=== PATIENT | female | born 1960 | race Caucasian/White ===

== ENCOUNTER 2020-12-12 09:02 | Outpatient (CLI) | payer MEDICARE, MEDICAID ==
[2020-12-12 10:33] LABS: ALBUMIN 3.5 G/DL (3.4-5.0); ANION GAP 10 (8-16); BLOOD UREA NITROGEN 11 MG/DL (7-18); BUN/CREATININE RATIO 13.3 (6.6-38.0); CALCIUM 8.8 MG/DL (8.5-10.1); CHLORIDE 103 MMOL/L (99-107); CREATININE 0.83 MG/DL (0.40-0.90); GLUCOSE 177 MG/DL (70-104); POTASSIUM 4.1 MMOL/L (3.5-5.1); SODIUM 142 MMOL/L (135-145); TOTAL CARBON DIOXIDE 28.6 MMOL/L (24-32); eGFR 70 ML/MIN
== END 2020-12-12 23:59 | disposition home or self-care (01) ==
LOC: LAB 09:02
PROVIDERS: ATTEND Internal Medicine Interventional Cardiology
DX: I11.9 Hypertensive heart disease without heart failure (principal)
CPT/HCPCS: 36415; 80048

== ENCOUNTER 2021-01-03 08:22 | Outpatient (CLI) | payer MEDICARE, MEDICAID | END 2021-01-03 23:59 | disposition home or self-care (01) | LOC: 64 CT 08:22 | PROVIDERS: ATTEND Internal Medicine Interventional Cardiology | DX: I35.0 Nonrheumatic aortic (valve) stenosis (principal) | CPT/HCPCS: 75571 ==

== ENCOUNTER 2021-01-31 10:19 | Day surgery (SDC) | payer MEDICARE, MEDICAID ==
[2021-01-30 09:52] LABS: BASOPHILS # (AUTO) 0.1 X10'3 (0-0.2); BASOPHILS % (AUTO) 1.1 % (0-1); EOSINOPHILS # (AUTO) 0.7 X10'3 (0-0.9); EOSINOPHILS % (AUTO) 9.7 % (0-6); HEMATOCRIT 41.2 % (35.0-45.0); HEMOGLOBIN 13.6 g/dl (12.0-16.0); MEAN CORPUSCULAR HEMOGLOBIN 30.6 PG (27.0-31.0); MEAN CORPUSCULAR VOLUME 92.8 FL (78-98); MEAN PLATELET VOLUME 8.3 FL (7.4-10.4); MONOCYTES # (AUTO) 0.6 X10'3 (0-0.9); MONOCYTES % (AUTO) 7.6 % (2-12); NEUTROPHILS # (AUTO) 4.1 X10'3 (1.8-7.7); NEUTROPHILS % (AUTO) 54.6 % (42-75); PLATELET COUNT 304 X10'3 (140-440); RED BLOOD COUNT 4.44 X10'6 (4.20-5.60); RED CELL DISTRIBUTION WIDTH 12.9 % (11.5-14.5); WHITE BLOOD COUNT 7.5 X10'3 (4.5-11.0)
[2021-01-30 10:10] LABS: ALBUMIN 3.6 G/DL (3.4-5.0); ANION GAP 9 (8-16); BLOOD UREA NITROGEN 13 MG/DL (7-18); BUN/CREATININE RATIO 16.3 (6.6-38.0); CALCIUM 9.2 MG/DL (8.5-10.1); CHLORIDE 106 MMOL/L (99-107); GLUCOSE 146 MG/DL (70-104); SODIUM 144 MMOL/L (135-145); TOTAL CARBON DIOXIDE 28.9 MMOL/L (24-32); eGFR 73 ML/MIN
[2021-01-30 10:14] LABS: PARTIAL THROMBOPLASTIN TIME 25 SECONDS (22-32)
[~2021-01-31] VITALS: Ht 167.6 cm; Wt 117.5 kg
[2021-01-31] VITALS (9 sets, daily range): BP systolic 96–167; BP diastolic 27–110
[2021-01-31] MEDS ORDERED: normal saline 1,000 ML IV SCH (10:35)
[2021-01-31] MEDS ORDERED: diphenhydrAMINE 25mg capsule PO PRN (10:35)
[2021-01-31] MEDS ORDERED: LIDOcaine/PRILOcaine 5gm cream TP ONE (10:35)
[2021-01-31] MEDS ORDERED: LORazepam 0.5 MG tablet PO PRN (10:35)
[2021-01-31] MEDS ORDERED: METH-797 PO (10:51)
[2021-01-31] MEDS ORDERED: EVOL140P3 SQ (10:51)
[2021-01-31] MEDS ORDERED: LISI-790 PO (10:52)
[2021-01-31] MEDS ORDERED: GABA300T25 PO (10:52)
[2021-01-31] MEDS ORDERED: METO-384 PO (10:52)
[2021-01-31] MEDS ORDERED: ASPI-12 PO (10:52)
[2021-01-31] MEDS ORDERED: SITA1TAB6 PO (10:52)
[2021-01-31] MEDS ORDERED: ALBU18HF2 INH (10:52)
[2021-01-31] MEDS ORDERED: POTA10TA36 PO (10:52)
[2021-01-31] MEDS ORDERED: FURO20TA4 PO (10:52)
[2021-01-31] MEDS ORDERED: HYDR-3972 PO (10:52)
[2021-01-31] MEDS ORDERED: DULA1.5P SQ (10:53)
[2021-01-31] MEDS ORDERED: heparin 1,000unit/ml 10ml vial 10 ML ONE (11:40)
[2021-01-31] MEDS ORDERED: verapamil 2.5 mg/ml inj IV ONE (11:40)
[2021-01-31] MEDS ORDERED: nitroGLYCERIN-Tridil 50MG/D5W 250 ML IV ONE (11:40)
[2021-01-31] MEDS ORDERED: fentaNYL/PF 50MCG/1 ML 2ML syringe ONE (11:40)
[2021-01-31] MEDS ORDERED: midazolam 1 mg/ML 2ml injection ONE (11:40)
[2021-01-31] MEDS ORDERED: iohexol 350MG/ML 100ml bottle IV ONE (11:40)
[2021-01-31] MEDS ORDERED: normal saline 1000ml 1,000 ML IV SCH (13:50)
[2021-01-31] MEDS ORDERED: proCHLORperazine 10 MG/2 ml inj IV PRN (13:50)
[2021-01-31] MEDS ORDERED: acetaminophen 325mg tablet PO PRN (13:50)
[2021-01-31] MEDS ORDERED: ondansetron/PF 4mg/2ml inj IV PRN (13:50)
[2021-01-31] MEDS ORDERED: OXAZEpam 15mg capsule PO PRN (13:50)
[2021-01-31] MEDS ORDERED: HYDROcodone/acetaminophen 10/325mg tab PO PRN (14:00)
[2021-01-31] MEDS ORDERED: HYDROcodone/acetaminophen 5mg/325mg tablet PO PRN (14:00)
== END 2021-01-31 17:45 | disposition home or self-care (01) ==
LOC: SSTAY O 10:19
PROVIDERS: ATTEND Internal Medicine Interventional Cardiology
DX: I35.0 Nonrheumatic aortic (valve) stenosis (principal); I25.10 Atherosclerotic heart disease of native coronary artery without angina pectoris; E78.5 Hyperlipidemia, unspecified; G47.33 Obstructive sleep apnea (adult) (pediatric); I10 Essential (primary) hypertension; F41.9 Anxiety disorder, unspecified; Z79.899 Other long term (current) drug therapy; Z79.82 Long term (current) use of aspirin; Z88.5 Allergy status to narcotic agent; Z88.8 Allergy status to other drugs, medicaments and biological substances; Z88.4 Allergy status to anesthetic agent; Z79.01 Long term (current) use of anticoagulants
CPT/HCPCS: 36415; 80048; 82948; 85025; 85610; 85730; 93005; 93460; 99152; 99153; C1769; J1644; J2250; J3010; J7030; Q0163; Q9967; A4620; A6258; C1751; J3490

== ENCOUNTER 2021-06-28 10:27 | Outpatient (CLI) | payer MEDICARE, MEDICAID ==
[~2021-06-28] VITALS: Ht 165.1 cm; Wt 114.3 kg
[~2021-06-28 10:27] MED LIST: ALBU18HF2 INH; ASPI-12 PO; DULA1.5P SQ; EVOL140P3 SQ; FURO20TA4 PO; GABA300T25 PO; HYDR-3972 PO; LISI-790 PO; METH-797 PO; METO-384 PO; POTA10TA36 PO; SITA1TAB6 PO
[2021-06-28 11:08] LABS: BASOPHILS # (AUTO) 0.1 X10'3 (0-0.2); EOSINOPHILS # (AUTO) 0.5 X10'3 (0-0.9); EOSINOPHILS % (AUTO) 6.2 % (0-6); HEMATOCRIT 39.7 % (35.0-45.0); HEMOGLOBIN 13.5 g/dl (12.0-16.0); LYMPHOCYTES % (AUTO) 25.2 % (21-51); MEAN CORPUSCULAR HEMOGLOBIN 30.9 PG (27.0-31.0); MEAN CORPUSCULAR HGB CONC 33.9 g/dL (33.0-36.5); MEAN CORPUSCULAR VOLUME 91.1 FL (78-98); MEAN PLATELET VOLUME 8.2 FL (7.4-10.4); MONOCYTES # (AUTO) 0.5 X10'3 (0-0.9); MONOCYTES % (AUTO) 6.2 % (2-12); NEUTROPHILS # (AUTO) 4.8 X10'3 (1.8-7.7); NEUTROPHILS % (AUTO) 61.4 % (42-75); PLATELET COUNT 277 X10'3 (140-440); RED BLOOD COUNT 4.36 X10'6 (4.20-5.60); RED CELL DISTRIBUTION WIDTH 12.7 % (11.5-14.5); WHITE BLOOD COUNT 7.8 X10'3 (4.5-11.0)
[2021-06-28] MEDS ORDERED: IODIXANOL 320 MG/ML INFUS..BTL 100ML IV ONE ×2 (11:14→13:28)
[2021-06-28] MEDS ORDERED: IODIXANOL 320 MG/ML INFUS..BTL 50ML IV ONE ×2 (11:15→13:28)
[2021-06-28 11:20] LABS: PARTIAL THROMBOPLASTIN TIME 26 SECONDS (22-32)
[2021-06-28 11:22] LABS: ALANINE AMINOTRANSFERASE 39 U/L (12-78); ALBUMIN 3.5 G/DL (3.4-5.0); ALBUMIN/GLOBULIN RATIO 0.9 (1.1-1.5); ALKALINE PHOSPHATASE 110 IU/L (46-116); ANION GAP 9 (8-16); ASPARTATE AMINO TRANSFERASE 38 U/L (10-37); BILIRUBIN,TOTAL 0.4 MG/DL (0.1-1.0); BLOOD UREA NITROGEN 12 MG/DL (7-18); BUN/CREATININE RATIO 16.2 (6.6-38.0); CALCIUM 8.7 MG/DL (8.5-10.1); CHLORIDE 106 MMOL/L (99-107); CREATININE 0.74 MG/DL (0.40-0.90); GLUCOSE 152 MG/DL (70-104); POTASSIUM 4.2 MMOL/L (3.5-5.1); SODIUM 144 MMOL/L (135-145); TOTAL CARBON DIOXIDE 28.7 MMOL/L (24-32); TOTAL PROTEIN 7.4 G/DL (6.4-8.2); eGFR 80 ML/MIN
[2021-06-28] MEDS ORDERED: albuterol 2.5 MG/3 ML nebule NEB ONE (14:30)
== END 2021-06-28 23:59 | disposition home or self-care (01) ==
LOC: 64 CT 10:27
PROVIDERS: ATTEND Internal Medicine Cardiovascular Disease
DX: I71.2 Thoracic aortic aneurysm, without rupture (principal); R94.2 Abnormal results of pulmonary function studies
CPT/HCPCS: 36415; 71046; 71275; 74174; 80053; 85025; 85610; 85730; 94060; 94727; 94729; 94760; Q9967

== ENCOUNTER 2021-07-24 05:21 | Inpatient (IN) | payer MEDICARE, MEDICAID ==
[2021-07-19 15:36] LABS: BASOPHILS # (AUTO) 0.1 X10'3 (0-0.2); BASOPHILS % (AUTO) 0.9 % (0-1); EOSINOPHILS # (AUTO) 0.4 X10'3 (0-0.9); EOSINOPHILS % (AUTO) 4.8 % (0-6); LYMPHOCYTES # (AUTO) 2.3 X10'3 (1.1-4.8); LYMPHOCYTES % (AUTO) 29.4 % (21-51); MEAN CORPUSCULAR HGB CONC 33.9 g/dL (33.0-36.5); MEAN CORPUSCULAR VOLUME 91.4 FL (78-98); MEAN PLATELET VOLUME 8.5 FL (7.4-10.4); MONOCYTES # (AUTO) 0.7 X10'3 (0-0.9); MONOCYTES % (AUTO) 8.7 % (2-12); NEUTROPHILS # (AUTO) 4.5 X10'3 (1.8-7.7); NEUTROPHILS % (AUTO) 56.2 % (42-75); PRE OP HEMATOCRIT 41.9 % (35.0-45.0); PRE OP HEMOGLOBIN 14.2 g/dL (12.0-16.0); PRE OP PLATELET COUNT 301 X10'3 (140-440); RED BLOOD COUNT 4.58 X10'6 (4.20-5.60); RED CELL DISTRIBUTION WIDTH 12.8 % (11.5-14.5)
[2021-07-19 15:39] LABS: ABG BASE EXCESS 0.7 mmol/L (-2.0-2.0); ABG HCO3 25.8 mmol/L (22.0-26.0); ABG OXYGEN SATURATION 96.1 % (94-97); ALLEN'S TEST POSITIVE; FCOHb 0.6 % (0.0-3.9); FMetHb 0.1 % (0.0-1.5); FO2Hb 95.4 % (94-97); TOTAL HEMOGLOBIN 14.6 G/dl (12.0-16.0)
[2021-07-19 15:42] LABS: CLARITY,URINE SLIGHTLY CLOUDY (Clear); COLOR,URINE YELLOW (Yellow); GLUCOSE, URINE NEGATIVE (Neg); KETONES,URINE NEGATIVE (Neg); LEUKOCYTE ESTERASE ,URINE NEGATIVE (Neg); NITRITES, URINE NEGATIVE (Neg); OCCULT BLOOD,URINE NEGATIVE (Neg); PROTEIN,URINE NEGATIVE (Neg); UROBILINOGEN,URINE 0.2 E.U/dL (0.2-1.0)
[2021-07-19 15:49] LABS: HEMOGLOBIN A1C 6.8 % (4.5-6.2); PRE OP INR 1.1 INR; PRE OP PROTIME 10.9 SECONDS (9.0-12.0)
[2021-07-19 15:52] LABS: UA COLLECTION TYPE CLN CATCH MIDSTREAM
[2021-07-19 15:54] LABS: MUCUS STRANDS FEW /LPF (Neg); SQUAMOUS EPITHELIAL CELL,UR MANY /LPF (FEW)
[2021-07-19 15:54] LABS: ALBUMIN 3.8 G/DL (3.4-5.0); ALBUMIN/GLOBULIN RATIO 0.9 (1.1-1.5); ALKALINE PHOSPHATASE 95 IU/L (46-116); BLOOD UREA NITROGEN 14 MG/DL (7-18); BUN/CREATININE RATIO 20.9 (6.6-38.0); CHLORIDE 107 MMOL/L (99-107); CREATININE 0.67 MG/DL (0.40-0.90); PRE OP ALT 65 U/L (30-65); PRE OP ANION GAP 11 (8-16); PRE OP AST 60 U/L (10-37); PRE OP BILIRUB, TOTAL 0.3 MG/DL (0.0-1.0); PRE OP GLUCOSE 124 MG/DL (70-104); PRE OP POTASSIUM 4.4 MMOL/L (3.4-5.1); PRE OP SODIUM 143 MMOL/L (135-145); TOTAL CARBON DIOXIDE 24.9 MMOL/L (24-32); eGFR 89 ML/MIN
[2021-07-19 15:55] LABS: CAL OXALATE CRYSTALS 3+ /HPF (NEGATIVE)
[2021-07-19 15:56] LABS: BACTERIA,URINE FEW /HPF (Neg); RBC,URINE 0-2 /HPF (0-2); WBC,URINE 0-4 /HPF (0-4)
[2021-07-24] VITALS (16 sets, daily range): BP systolic 97–156; BP diastolic 52–86
[~2021-07-24] VITALS: Ht 165.1 cm; Wt 115.1 kg
[~2021-07-24 05:21] MED LIST changes: +ASPI-10 PO; -ASPI-12 PO; -DULA1.5P SQ; -EVOL140P3 SQ; +FURO-150 PO; -FURO20TA4 PO; +GABA300C PO; -GABA300T25 PO; -LISI-790 PO; -METH-797 PO; -METO-384 PO; +METO-395 PO; -POTA10TA36 PO; +SITA1TAB2 PO; -SITA1TAB6 PO; +ceFAZolin 1000mg inj ONE; +ringers solution, lacted 1,000 ML IV SCH
[2021-07-24] MEDS ORDERED: mupirocin 2% nasal ointment 1gm UD NS ONE (05:30)
[2021-07-24] MEDS ORDERED: LORazepam 2 mg/ml vial IV PRN (05:30)
[2021-07-24] MEDS ORDERED: gabapentin 400mg capsule PO ONE (05:30)
[2021-07-24] MEDS: Insulin Reg/NS 100units/100mL 100 ML IV SCH ×2 (05:30→23:28)
[2021-07-24] MEDS ORDERED: DOCUMENT DATE & TIME OF BETA-BLOCKER PO ONE (05:30)
[2021-07-24] MEDS ORDERED: dextrose 50%-water 50ml dispensing syringe IV PRN ×2 (05:30→11:15)
[2021-07-24] MEDS ORDERED: metoprolol tartrate 12.5mg (1/2 tablet) PO ONE (05:30)
[2021-07-24] MEDS ORDERED: vancomycin 1,500 MG in NS 300ml IV soln IV ONE (05:30)
[2021-07-24] MEDS ORDERED: famotidine 20mg tablet PO ONE (05:30)
[2021-07-24] MEDS ORDERED: cefazolin/dext.iso 2gm/100ml IV ONE (05:30)
[2021-07-24] MEDS ORDERED: LIDOcaine 1% (10mg/ml) 2ml vial ONE (06:12)
[2021-07-24] MEDS ORDERED: SUFENTANIL CITRATE 50 MCG/ML 2ml ampule IV ONE (06:49)
[2021-07-24] MEDS ORDERED: MIDAZolam 1mg/ml 10ml vial ONE (06:49)
[2021-07-24] MEDS ORDERED: protamine sulf. 10mg/ml inj. IV ONE (07:14)
[2021-07-24] MEDS ORDERED: glycopyrrolate 0.2mg/ml inj ONE (07:14)
[2021-07-24] MEDS ORDERED: ondansetron/PF 4mg/2ml inj ONE ×2 (07:14→10:30)
[2021-07-24] MEDS ORDERED: nitroGLYCERIN in D5W 50mg/250ml (Tridil) infusion IV ONE (07:14)
[2021-07-24] MEDS ORDERED: neostigmine methylsulfate 1 MG/ML 10ml vial ONE (07:14)
[2021-07-24] MEDS ORDERED: isoflurane 100ml inhalation liquid IH ONE (07:14)
[2021-07-24 07:19] LABS: CLARITY,URINE SLIGHTLY CLOUDY (Clear); COLOR,URINE YELLOW (Yellow); GLUCOSE, URINE NEGATIVE (Neg); KETONES,URINE NEGATIVE (Neg); LEUKOCYTE ESTERASE ,URINE NEGATIVE (Neg); NITRITES, URINE NEGATIVE (Neg); OCCULT BLOOD,URINE NEGATIVE (Neg); PROTEIN,URINE NEGATIVE (Neg); UROBILINOGEN,URINE 0.2 E.U/dL (0.2-1.0)
[2021-07-24 07:29] LABS: CAL OXALATE CRYSTALS 4+ /HPF (NEGATIVE); SQUAMOUS EPITHELIAL CELL,UR MANY /LPF (FEW); UA COLLECTION TYPE CLN CATCH MIDSTREAM
[2021-07-24 07:30] LABS: MUCUS STRANDS MANY /LPF (Neg)
[2021-07-24 07:32] LABS: BACTERIA,URINE NONE SEEN /HPF (Neg); RBC,URINE 0-2 /HPF (0-2); WBC,URINE 0-4 /HPF (0-4)
[2021-07-24] MEDS ORDERED: MAGNESIUM SULFATE 4 MEQ/ML (5gm/10ml) injection ONE (08:00)
[2021-07-24] MEDS ORDERED: albumin (human) 25% 100 ML IV solution IV ONE (08:00)
[2021-07-24] MEDS ORDERED: potassium acetate 2 mEq/1ml inj. IV ONE (08:00)
[2021-07-24] MEDS ORDERED: LIDOcaine 2% (20 mg/ml) 5ml cardiac syringe ONE (08:00)
[2021-07-24] MEDS ORDERED: heparin 1,000 units/ml 10ml inj ONE (08:00)
[2021-07-24] MEDS ORDERED: heparin 10,000 units/1 ML INJ ONE (08:00)
[2021-07-24] MEDS ORDERED: methylPREDNISolone sod succ 1000mg vial ONE (08:00)
[2021-07-24] MEDS ORDERED: aminocaproic acid 250 MG/1 ML inj. ONE (08:00)
[2021-07-24] MEDS ORDERED: calcium chloride 100 MG/1 ML inj IV ONE (08:00)
[2021-07-24] MEDS ORDERED: phenylephrine 10mg/ml inj. ONE ×2 (08:00→08:41)
[2021-07-24] MEDS ORDERED: sodium bicarbonate (8.4%) 1 mEq/ml syringe ONE (08:00)
[2021-07-24 08:08] LABS: ABG BASE EXCESS -1.1 mmol/L (-2.0-2.0); ABG HCO3 24.1 mmol/L (22.0-26.0); ABG OXYGEN SATURATION 99.6 % (94-97); ABG PCO2 42.5 mmHg (32.0-45.0); ABG PO2 288.8 mmHg (75.0-100.0); CL (ABG) 102 mmol/L (98-110); FCOHb 0.2 % (0.0-3.9); FMetHb 0.3 % (0.0-1.5); FO2Hb 99.1 % (94-97); GLUCOSE (ABG) 121 mg/dl (70-105); IONIZED CA (ABG) 1.12 mmol/L (1.10-1.43); K (ABG) 3.6 mmol/L (3.5-5.0); TOTAL HEMOGLOBIN 12.6 G/dl (12.0-16.0)
[2021-07-24] MEDS ORDERED: ePHEDrine 50MG/ML INJ. ONE (08:41)
[2021-07-24] MEDS ORDERED: 0.9 % SODIUM CHLORIDE 10 ML VIAL ONE ×2 (08:41)
[2021-07-24] MEDS ORDERED: rocuronium 10mg/ml inj IV ONE ×2 (08:41)
[2021-07-24] MEDS ORDERED: propofol inj 20 ML IV ONE (08:41)
[2021-07-24] MEDS ORDERED: midazolam 1 mg/ML 2ml injection IV ONE (08:45)
[2021-07-24] MEDS ORDERED: FENTANYL-0.9 % NACL/PF 100 ML IV PRN (08:45)
[2021-07-24] MEDS ORDERED: fentaNYL/PF 50MCG/1 ML 2ML syringe IV PRN (08:45)
[2021-07-24] MEDS ORDERED: midazolam 100mg in NS 100ml 100 ML IV PRN (08:45)
[2021-07-24 08:55] LABS: ABG BASE EXCESS 0.3 mmol/L (-2.0-2.0); ABG HCO3 25.8 mmol/L (22.0-26.0); ABG OXYGEN SATURATION 99.7 % (94-97); ABG PCO2 45.8 mmHg (32.0-45.0); ABG PO2 534.2 mmHg (75.0-100.0); CL (ABG) 103 mmol/L (98-110); FCOHb 0.3 % (0.0-3.9); FMetHb 0.3 % (0.0-1.5); FO2Hb 99.1 % (94-97); GLUCOSE (ABG) 129 mg/dl (70-105); IONIZED CA (ABG) 1.03 mmol/L (1.10-1.43); K (ABG) 4.3 mmol/L (3.5-5.0); TOTAL HEMOGLOBIN 9.8 G/dl (12.0-16.0)
[2021-07-24 09:18] LABS: ABG BASE EXCESS VENOUS 1.1 mmol/L (-2.0 - 2.0); ABG HCO3 VENOUS 25.9 mmol/L (21.0-28.0); ABG PCO2 VENOUS 42.2 mmHg (38.0-51.0); CL (ABG) 103 mmol/L (98-110); FCOHb VENOUS 0.3 % (0.0- 3.9); FHHb VENOUS 7.1 %; FMetHb VENOUS 0.3 % (0.0 - 0.5); FO2Hb VENOUS 92.3 %; GLUCOSE (ABG) 133 mg/dl (70-105); IONIZED CA (ABG) 1.03 mmol/L (1.10-1.43); K (ABG) 4.6 mmol/L (3.5-5.0)
[2021-07-24 09:59] LABS: ABG BASE EXCESS -0.4 mmol/L (-2.0-2.0); ABG OXYGEN SATURATION 99.6 % (94-97); ABG PCO2 32.9 mmHg (32.0-45.0); ABG PO2 462.3 mmHg (75.0-100.0); CL (ABG) 103 mmol/L (98-110); FCOHb 0.1 % (0.0-3.9); FMetHb 0.3 % (0.0-1.5); FO2Hb 99.2 % (94-97); GLUCOSE (ABG) 147 mg/dl (70-105); IONIZED CA (ABG) 1.36 mmol/L (1.10-1.43); K (ABG) 4.8 mmol/L (3.5-5.0); TOTAL HEMOGLOBIN 9.3 G/dl (12.0-16.0)
[2021-07-24] MEDS ORDERED: ceFAZolin 1000mg inj ONE (10:23)
[2021-07-24 10:24] LABS: ABG BASE EXCESS 0.9 mmol/L (-2.0-2.0); ABG HCO3 24.9 mmol/L (22.0-26.0); ABG OXYGEN SATURATION 99.5 % (94-97); ABG PCO2 37.3 mmHg (32.0-45.0); ABG PO2 380.7 mmHg (75.0-100.0); CL (ABG) 105 mmol/L (98-110); FCOHb 0.3 % (0.0-3.9); FMetHb 0.3 % (0.0-1.5); FO2Hb 98.9 % (94-97); GLUCOSE (ABG) 159 mg/dl (70-105); IONIZED CA (ABG) 1.16 mmol/L (1.10-1.43); K (ABG) 4.2 mmol/L (3.5-5.0); TOTAL HEMOGLOBIN 9.5 G/dl (12.0-16.0)
[2021-07-24 10:29] LABS: ACTIVATED CLOTTING TIME 109 SEC (101-148)
[2021-07-24] MEDS ORDERED: dexamethasone sod phosphate 4mg/ml inj. ONE (10:29)
[2021-07-24 10:42] LABS: ACT @ 1.70 U 230 SEC (193-297); ACT @ 2.84 U 326 SEC (260-420); BASELINE ACT 120 SEC (101-148)
[2021-07-24] MEDS ORDERED: pantoprazole 40 MG vial IV ONE (11:15)
[2021-07-24] MEDS ORDERED: sodium phosphate inj. 30 MMOL in dextrose 5%-water 250 ML IV PRN (11:15)
[2021-07-24] MEDS ORDERED: potassium Cl 40MEQ/1/2NS 520ml 520 ML IV PRN (11:15)
[2021-07-24] MEDS ORDERED: potassium Cl 20mEq/100mL bag 100 ML IV PRN (11:15)
[2021-07-24] MEDS ORDERED: Insulin Reg/NS 100units/100mL 100 ML IV SCH (11:15)
[2021-07-24] MEDS ORDERED: insulin glargine (Lantus) pen - multi-dose SQ PRN (11:15)
[2021-07-24] MEDS ORDERED: niCARDipine-NS 40mg/200ml IVPB 200 ML IV PRN (11:15)
[2021-07-24] MEDS ORDERED: ondansetron/PF 4mg/2ml inj IV PRN (11:15)
[2021-07-24] MEDS ORDERED: normal saline 250ml IV soln 250 ML IV PRN (11:15)
[2021-07-24] MEDS ORDERED: DOPamine 400mg/D5W 250ml 250 ML IV PRN (11:15)
[2021-07-24] MEDS ORDERED: Neutra Phos packet PO PRN (11:15)
[2021-07-24] MEDS ORDERED: potassium CL 10mEq/100ml bag 100 ML IV PRN (11:15)
[2021-07-24] MEDS ORDERED: HYDROmorphone 1 mg/ml syringe IV PRN (11:15)
[2021-07-24] MEDS ORDERED: sodium phosphate inj. 15 MMOL in dextrose 5%-water 250 ML IV PRN (11:15)
[2021-07-24] MEDS ORDERED: acetaminophen 325mg tablet PO PRN ×2 (11:15)
[2021-07-24] MEDS ORDERED: magnesium hydroxide 30ml (MOM) UD suspension PO PRN (11:15)
[2021-07-24] MEDS ORDERED: mineral oil 133ml enema RC PRN (11:15)
[2021-07-24] MEDS ORDERED: magnesium citrate 296ml oral solution PO PRN (11:15)
[2021-07-24] MEDS: sodium chloride 0.45% 1,000 ML IV SCH (11:15)
[2021-07-24] MEDS ORDERED: bisacodyl 10mg suppository rectal RC PRN (11:15)
[2021-07-24] MEDS ORDERED: nitroGLYCERIN-Tridil 50MG/D5W 250 ML IV PRN (11:15)
[2021-07-24] MEDS ORDERED: metoclopramide 5 mg/ml inj IV PRN (11:15)
[2021-07-24] MEDS ORDERED: magnesium 4gm in 100ml NS 100 ML IV PRN (11:15)
[2021-07-24] MEDS ORDERED: potassium Cl 20 mEq SR tablet PO PRN (11:15)
[2021-07-24] MEDS ORDERED: potassium Cl 40MEQ/250ML bag 250 ML IV PRN (11:15)
[2021-07-24] MEDS ORDERED: albuterol 2.5 MG/3 ML nebule NEB PRN (11:20)
[2021-07-24 11:47] LABS: ABG HCO3 23.5 mmol/L (22.0-26.0); ABG OXYGEN SATURATION 99.3 % (94-97); ABG PCO2 (T) 42.5 mmHg (32.0-45.0); ABG PO2 (T) 316.3 mmHg (75.0-100.0); FCOHb 0.3 % (0.0-3.9); FLOW 20 L/min; FMetHb 0.4 % (0.0-1.5); FO2Hb 98.6 % (94-97); PATIENT TEMPERATURE 36.7; PEEP 5 cm H2O; RESPIRATORY RATE 12 b/min; TIDAL VOLUME 550 mL; TOTAL HEMOGLOBIN 11.6 G/dl (12.0-16.0)
[2021-07-24 12:12] LABS: BASOPHILS # (AUTO) 0.1 X10'3 (0-0.2); BASOPHILS % (AUTO) 0.4 % (0-1); EOSINOPHILS # (AUTO) 0.1 X10'3 (0-0.9); EOSINOPHILS % (AUTO) 0.8 % (0-6); HEMATOCRIT 32.7 % (35.0-45.0); HEMOGLOBIN 10.8 g/dl (12.0-16.0); LYMPHOCYTES # (AUTO) 1.7 X10'3 (1.1-4.8); LYMPHOCYTES % (AUTO) 9.4 % (21-51); MEAN CORPUSCULAR HEMOGLOBIN 30.8 PG (27.0-31.0); MEAN CORPUSCULAR VOLUME 93.2 FL (78-98); MEAN PLATELET VOLUME 8.5 FL (7.4-10.4); MONOCYTES # (AUTO) 0.7 X10'3 (0-0.9); MONOCYTES % (AUTO) 3.7 % (2-12); NEUTROPHILS # (AUTO) 15.1 X10'3 (1.8-7.7); NEUTROPHILS % (AUTO) 85.7 % (42-75); PLATELET COUNT 168 X10'3 (140-440); RED BLOOD COUNT 3.51 X10'6 (4.20-5.60); RED CELL DISTRIBUTION WIDTH 12.7 % (11.5-14.5); WHITE BLOOD COUNT 17.6 X10'3 (4.5-11.0)
--- NOTE | 2021-07-24 12:13 | NUR ---
Nutrition Consult: Pt s/p AVR this admit; would benefit from high protein ed once stable post-op prior to discharge. Addendum: 07/24/21 at [address] Amended: Links added.
[2021-07-24 12:20] LABS: ALANINE AMINOTRANSFERASE 38 U/L (12-78); ALBUMIN 3.2 G/DL (3.4-5.0); ALBUMIN/GLOBULIN RATIO 1.3 (1.1-1.5); ALKALINE PHOSPHATASE 71 IU/L (46-116); ANION GAP 11 (8-16); ASPARTATE AMINO TRANSFERASE 55 U/L (10-37); BILIRUBIN,TOTAL 0.6 MG/DL (0.1-1.0); BLOOD UREA NITROGEN 10 MG/DL (7-18); BUN/CREATININE RATIO 10.6 (6.6-38.0); CHLORIDE 110 MMOL/L (99-107); CREATININE 0.94 MG/DL (0.40-0.90); GLUCOSE 218 MG/DL (70-104); MAGNESIUM 2.7 MG/DL (1.5-2.4); PHOSPHORUS 2.9 MG/DL (2.3-4.5); SODIUM 147 MMOL/L (135-145); TOTAL CARBON DIOXIDE 25.7 MMOL/L (24-32); TOTAL PROTEIN 5.7 G/DL (6.4-8.2); eGFR 60 ML/MIN
[2021-07-24 12:32] LABS: PARTIAL THROMBOPLASTIN TIME 28 SECONDS (22-32)
[2021-07-24] MEDS: albumin (Human) 5% 250ml 250 ML IV PRN ×2 (12:55→15:31)
[2021-07-24] MEDS: gabapentin 300mg capsule PO SCH ×2 (12:56→20:13)
[2021-07-24 15:08] LABS: ABG BASE EXCESS -5.6 mmol/L (-2.0-2.0); ABG HCO3 20.5 mmol/L (22.0-26.0); ABG OXYGEN SATURATION 95.9 % (94-97); ABG PCO2 (T) 41.1 mmHg (32.0-45.0); ABG PO2 (T) 86.6 mmHg (75.0-100.0); FCOHb 0.2 % (0.0-3.9); FLOW 20 L/min; FMetHb 0.4 % (0.0-1.5); FO2Hb 95.3 % (94-97); PATIENT TEMPERATURE 36.4; PEEP 5 cm H2O; RESPIRATORY RATE 12 b/min; TIDAL VOLUME 550 mL; TOTAL HEMOGLOBIN 11.8 G/dl (12.0-16.0)
[2021-07-24] MEDS: ceFAZolin/D5W- 1GM premix 50 ML IV SCH (16:07)
[2021-07-24] MEDS: HYDROcodone/acetaminophen 10/325mg tab PO PRN (16:07)
[2021-07-24 18:16] LABS: BASOPHILS % (AUTO) 0.1 % (0-1); EOSINOPHILS % (AUTO) 0 % (0-6); HEMATOCRIT 30.6 % (35.0-45.0); HEMOGLOBIN 9.9 g/dl (12.0-16.0); LYMPHOCYTES # (AUTO) 0.7 X10'3 (1.1-4.8); LYMPHOCYTES % (AUTO) 5.1 % (21-51); MEAN CORPUSCULAR HEMOGLOBIN 30.6 PG (27.0-31.0); MEAN CORPUSCULAR HGB CONC 32.4 g/dL (33.0-36.5); MEAN CORPUSCULAR VOLUME 94.6 FL (78-98); MEAN PLATELET VOLUME 8.5 FL (7.4-10.4); MONOCYTES # (AUTO) 0.5 X10'3 (0-0.9); MONOCYTES % (AUTO) 3.4 % (2-12); NEUTROPHILS # (AUTO) 12.8 X10'3 (1.8-7.7); NEUTROPHILS % (AUTO) 91.4 % (42-75); PLATELET COUNT 121 X10'3 (140-440); RED BLOOD COUNT 3.23 X10'6 (4.20-5.60); RED CELL DISTRIBUTION WIDTH 12.9 % (11.5-14.5)
--- NOTE | 2021-07-24 18:16 | NUR ---
Patient in room ICU 2041. I have received report from Kiesha Hernandez RN and had the opportunity to ask questions and assume patient care. PT is resting with no s/s of distress noted at this time. VSS. PT is on 3LNC and tolerating well, O2 sat >95%. Call light is within reach, bed is locked and low. Will continue to monitor.
[2021-07-24] MEDS: HYDROmorphone inj. 0.5 MG/0.5 ML DISP.SYRIN IV PRN ×2 (19:10→23:32)
[2021-07-24] MEDS: mupirocin 2% nasal ointment 1gm UD NS SCH (20:12)
[2021-07-24] MEDS: atorvastatin 10mg tablet PO SCH (20:13)
[2021-07-24] MEDS: sennosides/docusate sodium tablet PO SCH (20:13)
[2021-07-24] MEDS: vancomycin/NS 1 GM ADD-VANTAGE 250 ML IV SCH (20:19)
[2021-07-24 20:42] LABS: ALBUMIN 3.5 G/DL (3.4-5.0); ANION GAP 15 (8-16); BLOOD UREA NITROGEN 10 MG/DL (7-18); BUN/CREATININE RATIO 11.5 (6.6-38.0); CALCIUM 7.3 MG/DL (8.5-10.1); CHLORIDE 113 MMOL/L (99-107); CREATININE 0.87 MG/DL (0.40-0.90); GLUCOSE 163 MG/DL (70-104); MAGNESIUM 2.1 MG/DL (1.5-2.4); PHOSPHORUS 3.1 MG/DL (2.3-4.5); SODIUM 149 MMOL/L (135-145); eGFR 66 ML/MIN
[2021-07-25] VITALS (22 sets, daily range): BP systolic 111–146; BP diastolic 46–82
[2021-07-25] MEDS: ceFAZolin/D5W- 1GM premix 50 ML IV SCH ×3 (01:19→15:41)
[2021-07-25 03:43] LABS: BASOPHILS % (AUTO) 0 % (0-1); EOSINOPHILS % (AUTO) 0 % (0-6); HEMATOCRIT 29.6 % (35.0-45.0); HEMOGLOBIN 9.7 g/dl (12.0-16.0); LYMPHOCYTES # (AUTO) 1.2 X10'3 (1.1-4.8); LYMPHOCYTES % (AUTO) 7.7 % (21-51); MEAN CORPUSCULAR HEMOGLOBIN 30.1 PG (27.0-31.0); MEAN CORPUSCULAR HGB CONC 32.7 g/dL (33.0-36.5); MEAN CORPUSCULAR VOLUME 92.3 FL (78-98); MEAN PLATELET VOLUME 8.9 FL (7.4-10.4); MONOCYTES # (AUTO) 0.7 X10'3 (0-0.9); MONOCYTES % (AUTO) 4.7 % (2-12); NEUTROPHILS # (AUTO) 13.1 X10'3 (1.8-7.7); NEUTROPHILS % (AUTO) 87.6 % (42-75); PLATELET COUNT 125 X10'3 (140-440); RED CELL DISTRIBUTION WIDTH 12.8 % (11.5-14.5)
[2021-07-25] MEDS: HYDROmorphone inj. 0.5 MG/0.5 ML DISP.SYRIN IV PRN ×2 (03:47→07:28)
[2021-07-25 03:57] LABS: PARTIAL THROMBOPLASTIN TIME 26 SECONDS (22-32)
[2021-07-25 04:10] LABS: ALANINE AMINOTRANSFERASE 40 U/L (12-78); ALBUMIN 3.4 G/DL (3.4-5.0); ALBUMIN/GLOBULIN RATIO 1.5 (1.1-1.5); ALKALINE PHOSPHATASE 39 IU/L (46-116); ANION GAP 11 (8-16); ASPARTATE AMINO TRANSFERASE 69 U/L (10-37); BILIRUBIN,TOTAL 0.4 MG/DL (0.1-1.0); BLOOD UREA NITROGEN 12 MG/DL (7-18); BUN/CREATININE RATIO 16.7 (6.6-38.0); CALCIUM 7.7 MG/DL (8.5-10.1); CHLORIDE 112 MMOL/L (99-107); CREATININE 0.72 MG/DL (0.40-0.90); GLUCOSE 138 MG/DL (70-104); MAGNESIUM 2.1 MG/DL (1.5-2.4); PHOSPHORUS 2.6 MG/DL (2.3-4.5); POTASSIUM 4.8 MMOL/L (3.5-5.1); SODIUM 147 MMOL/L (135-145); TOTAL CARBON DIOXIDE 24.2 MMOL/L (24-32); TOTAL PROTEIN 5.7 G/DL (6.4-8.2); eGFR 82 ML/MIN
[2021-07-25] MEDS: magnesium 2GM in 50ml NS 50 ML IV PRN ×2 (04:31→14:56)
--- NOTE | 2021-07-25 05:15 | NUR ---
Pacer check performed, paused momentarily and Pt's HR decreased to 34. BP did not tolerate. Pacer is on, set rate of 60 with ventricular paced rate of 85 on monitor. Will continue to monitor.
--- NOTE | 2021-07-25 06:18 | NUR ---
Problems reprioritized. Patient report given, questions answered & plan of care reviewed with Bette MONSIVAIS.
--- NOTE | 2021-07-25 06:32 | NUR ---
Patient in room ICU 2041. I have received report from Sylvie MONSIVAIS and had the opportunity to ask questions and assume patient care.
[2021-07-25] MEDS: insulin glargine (Lantus) pen - multi-dose SQ SCH (07:25)
[2021-07-25] MEDS: gabapentin 300mg capsule PO SCH ×3 (07:28→21:04)
[2021-07-25] MEDS: aspirin 325mg tablet, delayed-release (Ecotrin) PO SCH (07:29)
[2021-07-25] MEDS: metoprolol tartrate 12.5mg (1/2 tablet) PO SCH ×2 (07:29→20:00)
[2021-07-25] MEDS: mupirocin 2% nasal ointment 1gm UD NS SCH ×2 (07:29→21:03)
[2021-07-25] MEDS: sennosides/docusate sodium tablet PO SCH ×2 (07:30→21:04)
[2021-07-25] MEDS: vancomycin/NS 1 GM ADD-VANTAGE 250 ML IV SCH ×2 (07:30→21:03)
[2021-07-25] MEDS ORDERED: furosemide 40mg/4ml inj IV ONE (08:05)
[2021-07-25] MEDS: insulin Lispro (HumaLOG) vial - multi-dose SQ SCH ×2 (08:45→13:14)
--- NOTE | 2021-07-25 09:00 | NUR ---
New orders from Dr. Renteria to d/c art line and swan. cannulas intact, pt tolerated well. insulin gtt stopped and pt to [facility] protocol
[2021-07-25] MEDS: HYDROcodone/acetaminophen 10/325mg tab PO PRN ×2 (11:54→17:30)
[2021-07-25] MEDS: sodium chloride 0.45% 1,000 ML IV SCH (11:59)
[2021-07-25] MEDS: mineral oil/petrolatum ophthal oint EACHEYE SCH ×2 (14:00→19:16)
--- NOTE | 2021-07-25 15:34 | NUR ---
Phone call to friend Emani at pt request for her at home CPAP machine, Emani said she will get it here.
--- NOTE | 2021-07-25 18:12 | NUR ---
Problems reprioritized. Patient report given, questions answered & plan of care reviewed with Sylvie MONSIVAIS.
--- NOTE | 2021-07-25 18:15 | NUR ---
Patient in room ICU 2041. I have received report from Bette MONSIVAIS and had the opportunity to ask questions and assume patient care.
--- NOTE | 2021-07-25 20:16 | NUR ---
Dr Renteria called after pacer check was performed, Pacer was paused for a brief moment and PT's HR immediately dropped. Call made d/t question of ordered dose of Lopressor. Telephone order received to [facility]. Pacer is working and PT's HR is low to mid 80's. BP Stable. Strip was printed and placed in chart. Will continue to monitor.
[2021-07-25] MEDS: atorvastatin 10mg tablet PO SCH (21:03)
[2021-07-26] VITALS (24 sets, daily range): BP systolic 16–150; BP diastolic 54–73
[2021-07-26] MEDS: ceFAZolin/D5W- 1GM premix 50 ML IV SCH (00:36)
[2021-07-26] MEDS: mineral oil/petrolatum ophthal oint EACHEYE SCH ×3 (01:49→11:49)
[2021-07-26 02:48] LABS: BASOPHILS % (AUTO) 0.1 % (0-1); EOSINOPHILS % (AUTO) 0 % (0-6); HEMATOCRIT 28.6 % (35.0-45.0); HEMOGLOBIN 9.3 g/dl (12.0-16.0); LYMPHOCYTES # (AUTO) 1.8 X10'3 (1.1-4.8); LYMPHOCYTES % (AUTO) 10.7 % (21-51); MEAN CORPUSCULAR HEMOGLOBIN 30.7 PG (27.0-31.0); MEAN CORPUSCULAR HGB CONC 32.5 g/dL (33.0-36.5); MEAN CORPUSCULAR VOLUME 94.3 FL (78-98); MEAN PLATELET VOLUME 9.2 FL (7.4-10.4); MONOCYTES # (AUTO) 1.3 X10'3 (0-0.9); MONOCYTES % (AUTO) 7.7 % (2-12); NEUTROPHILS # (AUTO) 13.8 X10'3 (1.8-7.7); NEUTROPHILS % (AUTO) 81.5 % (42-75); PLATELET COUNT 115 X10'3 (140-440); RED BLOOD COUNT 3.03 X10'6 (4.20-5.60)
[2021-07-26 03:06] LABS: ALBUMIN 3.2 G/DL (3.4-5.0); ANION GAP 6 (8-16); BLOOD UREA NITROGEN 14 MG/DL (7-18); BUN/CREATININE RATIO 22.6 (6.6-38.0); CHLORIDE 108 MMOL/L (99-107); CREATININE 0.62 MG/DL (0.40-0.90); GLUCOSE 188 MG/DL (70-104); MAGNESIUM 2.5 MG/DL (1.5-2.4); PHOSPHORUS 2.8 MG/DL (2.3-4.5); SODIUM 143 MMOL/L (135-145); TOTAL CARBON DIOXIDE 28.8 MMOL/L (24-32); eGFR > 90 ML/MIN
[2021-07-26] MEDS: HYDROmorphone inj. 0.5 MG/0.5 ML DISP.SYRIN IV PRN ×2 (06:00→13:53)
--- NOTE | 2021-07-26 06:26 | NUR ---
Problems reprioritized. Patient report given, questions answered & plan of care reviewed with Lisseth JARA.
--- NOTE | 2021-07-26 06:45 | NUR ---
Patient in room ICU 2041. I have received report from Donnell MONSIVAIS and had the opportunity to ask questions and assume patient care.
[2021-07-26] MEDS: gabapentin 300mg capsule PO SCH ×2 (07:37→20:29)
[2021-07-26] MEDS: pantoprazole 40mg Tablet.DR PO SCH (07:37)
[2021-07-26] MEDS: aspirin 325mg tablet, delayed-release (Ecotrin) PO SCH (07:38)
[2021-07-26] MEDS: mupirocin 2% nasal ointment 1gm UD NS SCH (07:38)
[2021-07-26] MEDS: sennosides/docusate sodium tablet PO SCH ×2 (07:38→20:29)
[2021-07-26] MEDS: HYDROcodone/acetaminophen 10/325mg tab PO PRN ×5 (07:38→20:30)
[2021-07-26] MEDS: insulin glargine (Lantus) pen - multi-dose SQ SCH (07:41)
[2021-07-26] MEDS: insulin Lispro (HumaLOG) vial - multi-dose SQ SCH ×3 (08:37→18:47)
--- NOTE | 2021-07-26 09:30 | NUR ---
GUILLERMO Yung in to remove chest tube. Patient stable and back in bed from chair
--- NOTE | 2021-07-26 11:00 | NUR ---
Patient walked with PT and now up in chair for lunch.
--- NOTE | 2021-07-26 14:00 | NUR ---
Patient transferred from chair to bed. tolerated sitting up in chair for 3 hours.
--- NOTE | 2021-07-26 18:10 | NUR ---
Patient in room ICU 2041. I have received report from Elizabeth MONSIVAIS and had the opportunity to ask questions and assume patient care.
--- NOTE | 2021-07-26 18:11 | NUR ---
Problems reprioritized. Patient report given, questions answered & plan of care reviewed with Lucho RN at bedside.
[2021-07-26] MEDS: atorvastatin 10mg tablet PO SCH (20:30)
[2021-07-27] VITALS (23 sets, daily range): BP systolic 93–138; BP diastolic 43–74
[2021-07-27] MEDS: HYDROmorphone inj. 0.5 MG/0.5 ML DISP.SYRIN IV PRN ×2 (00:41→04:31)
[2021-07-27 04:56] LABS: BASOPHILS % (AUTO) 0.3 % (0-1); EOSINOPHILS # (AUTO) 0.1 X10'3 (0-0.9); EOSINOPHILS % (AUTO) 0.5 % (0-6); HEMOGLOBIN 8.7 g/dl (12.0-16.0); LYMPHOCYTES # (AUTO) 2.7 X10'3 (1.1-4.8); MEAN CORPUSCULAR HEMOGLOBIN 30.4 PG (27.0-31.0); MEAN CORPUSCULAR HGB CONC 32.3 g/dL (33.0-36.5); MEAN PLATELET VOLUME 9.3 FL (7.4-10.4); MONOCYTES # (AUTO) 1.1 X10'3 (0-0.9); MONOCYTES % (AUTO) 8.7 % (2-12); NEUTROPHILS # (AUTO) 8.3 X10'3 (1.8-7.7); NEUTROPHILS % (AUTO) 68.5 % (42-75); PLATELET COUNT 113 X10'3 (140-440); RED BLOOD COUNT 2.88 X10'6 (4.20-5.60); RED CELL DISTRIBUTION WIDTH 12.7 % (11.5-14.5); WHITE BLOOD COUNT 12.1 X10'3 (4.5-11.0)
[2021-07-27 05:39] LABS: ALBUMIN 2.9 G/DL (3.4-5.0); ANION GAP 5 (8-16); BLOOD UREA NITROGEN 12 MG/DL (7-18); CALCIUM 7.9 MG/DL (8.5-10.1); CHLORIDE 108 MMOL/L (99-107); CREATININE 0.63 MG/DL (0.40-0.90); GLUCOSE 136 MG/DL (70-104); MAGNESIUM 1.8 MG/DL (1.5-2.4); PHOSPHORUS 2.9 MG/DL (2.3-4.5); POTASSIUM 4.1 MMOL/L (3.5-5.1); SODIUM 143 MMOL/L (135-145); TOTAL CARBON DIOXIDE 30.3 MMOL/L (24-32); eGFR > 90 ML/MIN
--- NOTE | 2021-07-27 06:21 | NUR ---
Patient in room ICU 2041. I have received report from YODIT Yepez and had the opportunity to ask questions and assume patient care.
--- NOTE | 2021-07-27 06:33 | NUR ---
Patient in room ICU 2041. I have received report from YODIT Yepez and had the opportunity to ask questions and assume patient care.
--- NOTE | 2021-07-27 06:34 | NUR ---
Problems reprioritized. Patient report given, questions answered & plan of care reviewed with Laquita MONSIVAIS.
[2021-07-27] MEDS ORDERED: furosemide 40mg/4ml inj IV ONE (08:20)
[2021-07-27] MEDS ORDERED: magnesium hydroxide 30ml (MOM) UD suspension PO ONE (08:20)
[2021-07-27] MEDS: gabapentin 300mg capsule PO SCH ×3 (08:22→20:39)
[2021-07-27] MEDS: HYDROcodone/acetaminophen 5mg/325mg tablet PO PRN (08:23)
[2021-07-27] MEDS: sennosides/docusate sodium tablet PO SCH ×2 (08:23→20:40)
[2021-07-27] MEDS: aspirin 325mg tablet, delayed-release (Ecotrin) PO SCH (08:24)
[2021-07-27] MEDS: pantoprazole 40mg Tablet.DR PO SCH (08:24)
[2021-07-27] MEDS: insulin glargine (Lantus) pen - multi-dose SQ SCH (08:29)
[2021-07-27] MEDS: insulin Lispro (HumaLOG) vial - multi-dose SQ SCH ×2 (08:30→20:39)
--- NOTE | 2021-07-27 11:30 | NUR ---
F/u 07/27: Pt seen by RUBEN for written/verbal high protein ed w/ RD contact information provided. Pt is agreeable to strawberry-banana Tae smoothie BIDBD for wound healing needs; PA notified. RUBEN encouraged pt to contact dietitian's office if further questions/concerns. Addendum: 07/27/21 at [address] Amended: Links added.
[2021-07-27] MEDS: oxyCODONE IR 5mg (immed. release) tablet PO PRN ×3 (11:34→20:40)
[2021-07-27] MEDS ORDERED: midazolam 1 mg/ML 2ml injection ONE ×3 (14:47→15:35)
[2021-07-27] MEDS ORDERED: ceFAZolin 2gm in dextrose, iso 50 ML IV ONE (14:47)
[2021-07-27] MEDS ORDERED: fentaNYL/PF 50MCG/1 ML 2ML syringe ONE ×2 (14:47→15:35)
[2021-07-27] MEDS ORDERED: ceFAZolin 1000mg inj ONE (14:48)
[2021-07-27] MEDS ORDERED: LIDOcaine 1% W/epiNEPHrine 1:100,000 20ml vial ONE (14:48)
[2021-07-27] MEDS ORDERED: iohexol 350 MG/ML 50ML vial IV ONE (15:28)
--- NOTE | 2021-07-27 18:12 | NUR ---
Problems reprioritized. Patient report given, questions answered & plan of care reviewed with YODIT Mercer.
--- NOTE | 2021-07-27 18:20 | NUR ---
Patient in room ICU 2041. I have received report from Laquita MONSIVAIS and had the opportunity to ask questions and assume patient care.
[2021-07-27] MEDS: atorvastatin 10mg tablet PO SCH (20:40)
[2021-07-28] VITALS (23 sets, daily range): BP systolic 103–131; BP diastolic 48–65
[2021-07-28] MEDS: oxyCODONE IR 5mg (immed. release) tablet PO PRN ×6 (00:28→22:37)
--- NOTE | 2021-07-28 06:11 | NUR ---
Problems reprioritized. Patient report given, questions answered & plan of care reviewed with Mounika MONSIVAIS.
[2021-07-28 07:17] LABS: BASOPHILS % (AUTO) 0.3 % (0-1); EOSINOPHILS # (AUTO) 0.2 X10'3 (0-0.9); EOSINOPHILS % (AUTO) 1.5 % (0-6); HEMATOCRIT 28.2 % (35.0-45.0); HEMOGLOBIN 9.4 g/dl (12.0-16.0); LYMPHOCYTES # (AUTO) 2.8 X10'3 (1.1-4.8); MEAN CORPUSCULAR HEMOGLOBIN 30.9 PG (27.0-31.0); MEAN CORPUSCULAR HGB CONC 33.2 g/dL (33.0-36.5); MEAN PLATELET VOLUME 9.5 FL (7.4-10.4); MONOCYTES % (AUTO) 9.5 % (2-12); NEUTROPHILS % (AUTO) 63.7 % (42-75); PLATELET COUNT 148 X10'3 (140-440); RED BLOOD COUNT 3.03 X10'6 (4.20-5.60); RED CELL DISTRIBUTION WIDTH 12.9 % (11.5-14.5)
[2021-07-28] MEDS: JUVEN Smoothie Arginine/Glut./Ca2+Bmb (Juven 19.3pkt) 240ml cup PO SCH ×3 (07:30→17:30)
[2021-07-28] MEDS: pantoprazole 40mg Tablet.DR PO SCH (07:59)
[2021-07-28] MEDS: aspirin 325mg tablet, delayed-release (Ecotrin) PO SCH (07:59)
[2021-07-28] MEDS: sennosides/docusate sodium tablet PO SCH ×2 (07:59→20:51)
[2021-07-28] MEDS: gabapentin 300mg capsule PO SCH ×3 (07:59→20:51)
[2021-07-28 08:04] LABS: ALBUMIN 2.9 G/DL (3.4-5.0); ANION GAP 7 (8-16); BLOOD UREA NITROGEN 16 MG/DL (7-18); BUN/CREATININE RATIO 25.4 (6.6-38.0); CALCIUM 8.1 MG/DL (8.5-10.1); CHLORIDE 106 MMOL/L (99-107); CREATININE 0.63 MG/DL (0.40-0.90); GLUCOSE 115 MG/DL (70-104); MAGNESIUM 1.8 MG/DL (1.5-2.4); PHOSPHORUS 3.8 MG/DL (2.3-4.5); SODIUM 144 MMOL/L (135-145); TOTAL CARBON DIOXIDE 30.6 MMOL/L (24-32); eGFR > 90 ML/MIN
[2021-07-28] MEDS: insulin glargine (Lantus) pen - multi-dose SQ SCH (08:09)
[2021-07-28] MEDS ORDERED: ceFAZolin 1000mg inj IR STA ×2 (08:14→08:30)
[2021-07-28] MEDS: HYDROcodone/acetaminophen 5mg/325mg tablet PO PRN ×3 (08:21→20:52)
[2021-07-28] MEDS ORDERED: ceFAZolin/D5W- 1GM premix 50 ML IV ONE ×2 (08:36→16:15)
[2021-07-28] MEDS: insulin Lispro (HumaLOG) vial - multi-dose SQ SCH ×3 (09:03→18:46)
--- NOTE | 2021-07-28 10:52 | NUR ---
Initial: Pt admit DX aortic valve disease s/p AVR and PPM this admit w/ hx T2DM A1C 6.8. Pt PO 75-100% current carb controlled meals w/ strawberry-banana debby smoothie started today for wound healing needs pending PO documentation. LBM 07/27. Will continue to monitor for additional protein needs post-op. Rec: 1. continue carb controlled diet 2. strawberry-banana debby smoothie BIDBD for wound healing 3. routine bowel care 4. weekly wts Addendum: 07/28/21 at [address] Amended: Links added.
[2021-07-28] MEDS: sodium chloride 0.45% 1,000 ML IV SCH (11:15)
[2021-07-28] MEDS ORDERED: OXYC-658 PO (13:59)
[2021-07-28] MEDS ORDERED: ceFAZolin/D5W- 1GM premix 50 ML IV SCH (16:00)
--- NOTE | 2021-07-28 18:45 | NUR ---
DM protocol level decreased fr/6 to 5 due to low, normal BS results throughout the day. AC dinner BS: 90 and carb intake 57. Conferred w/pt regarding Humalog protocol requirement of 14U f/carb coverage of which she expressed anxiety. Pt. agreed to take 10U Humalog which was admin.
--- NOTE | 2021-07-28 19:08 | NUR ---
Patient in room ICU 2041. I have received report from Keisha MONSIVAIS and had the opportunity to ask questions and assume patient care.
[2021-07-28] MEDS: atorvastatin 10mg tablet PO SCH (20:51)
[2021-07-29] VITALS (11 sets, daily range): BP systolic 109–130; BP diastolic 47–58
[2021-07-29] MEDS: HYDROcodone/acetaminophen 5mg/325mg tablet PO PRN ×2 (01:09→10:34)
[2021-07-29] MEDS: oxyCODONE IR 5mg (immed. release) tablet PO PRN ×4 (03:36→11:54)
--- NOTE | 2021-07-29 06:30 | NUR ---
Patient in room ICU 2041. I have received report from Lindsay Jesus RN and had the opportunity to ask questions and assume patient care.
--- NOTE | 2021-07-29 06:32 | NUR ---
Problems reprioritized. Patient report given, questions answered & plan of care reviewed with Jeanna MONSIVAIS.
[2021-07-29 07:52] LABS: PHOSPHORUS 4.6 MG/DL (2.3-4.5); POTASSIUM 3.9 MMOL/L (3.5-5.1)
[2021-07-29] MEDS: JUVEN Smoothie Arginine/Glut./Ca2+Bmb (Juven 19.3pkt) 240ml cup PO SCH (08:30)
[2021-07-29] MEDS: gabapentin 300mg capsule PO SCH (09:22)
[2021-07-29] MEDS: aspirin 325mg tablet, delayed-release (Ecotrin) PO SCH (09:22)
[2021-07-29] MEDS: pantoprazole 40mg Tablet.DR PO SCH (09:22)
[2021-07-29] MEDS: sennosides/docusate sodium tablet PO SCH (09:22)
[2021-07-29] MEDS: insulin Lispro (HumaLOG) vial - multi-dose SQ SCH (09:33)
[2021-07-29] MEDS: insulin glargine (Lantus) pen - multi-dose SQ SCH (09:44)
--- NOTE | 2021-07-29 11:00 | NUR ---
Updated Dr. Renteria that patient's pain medications are not providing adequate pain relief and she constantly states she is in a 9-10/10 pain. no new orders received. he states she is ready to go home.
--- NOTE | 2021-07-29 12:00 | NUR ---
Patient given all discharge paperwork and signed. Belongings accounted for. Shirt, leggings, underwear, tennis shoes and CPAP sent home with patient. Patient provided education regarding procedures and medications. She states no questions, however I encouraged her to contact her physician if any questions arise. PIV from left hand removed with no complications. Patient sent home with [id number].
[2021-08-02] MEDS ORDERED: OXYC-658 PO (12:03)
== END 2021-07-29 11:10 | disposition home health service (06) | DRG 220 ==
LOC: PAS IN 05:21 → ICU 2S 11:20
PROVIDERS: ADMIT Thoracic Surgery (Cardiothoracic Vascular Surgery); ATTEND Thoracic Surgery (Cardiothoracic Vascular Surgery)
PROC: B24BZZ4 Ultrasonography of Heart with Aorta, Transesophageal (ICD-10-PCS; 2021-07-24)
PROC: 5A1221Z Performance of Cardiac Output, Continuous (ICD-10-PCS; 2021-07-24)
PROC: 05H333Z Insertion of Infusion Device into Right Innominate Vein, Percutaneous Approach (ICD-10-PCS; 2021-07-24)
PROC: B54MZZA Ultrasonography of Right Upper Extremity Veins, Guidance (ICD-10-PCS; 2021-07-24)
PROC: 03HY32Z Insertion of Monitoring Device into Upper Artery, Percutaneous Approach (ICD-10-PCS; 2021-07-24)
PROC: 4A133B1 Monitoring of Arterial Pressure, Peripheral, Percutaneous Approach (ICD-10-PCS; 2021-07-24)
PROC: 4A133J1 Monitoring of Arterial Pulse, Peripheral, Percutaneous Approach (ICD-10-PCS; 2021-07-24)
PROC: 02RF08Z Replacement of Aortic Valve with Zooplastic Tissue, Open Approach (ICD-10-PCS; principal; 2021-07-24 07:14)
PROC: 5A09357 Assistance with Respiratory Ventilation, Less than 24 Consecutive Hours, Continuous Positive Airway Pressure (ICD-10-PCS; 2021-07-25)
PROC: 5A09357 Assistance with Respiratory Ventilation, Less than 24 Consecutive Hours, Continuous Positive Airway Pressure (ICD-10-PCS; 2021-07-26)
PROC: 5A09357 Assistance with Respiratory Ventilation, Less than 24 Consecutive Hours, Continuous Positive Airway Pressure (ICD-10-PCS; 2021-07-27)
PROC: 0JH606Z Insertion of Pacemaker, Dual Chamber into Chest Subcutaneous Tissue and Fascia, Open Approach (ICD-10-PCS; 2021-07-27)
PROC: 02H63JZ Insertion of Pacemaker Lead into Right Atrium, Percutaneous Approach (ICD-10-PCS; 2021-07-27)
PROC: 02HK3JZ Insertion of Pacemaker Lead into Right Ventricle, Percutaneous Approach (ICD-10-PCS; 2021-07-27)
PROC: 5A09357 Assistance with Respiratory Ventilation, Less than 24 Consecutive Hours, Continuous Positive Airway Pressure (ICD-10-PCS; 2021-07-28)
DX: Q23.0 Congenital stenosis of aortic valve (principal); Z00.6 Encounter for examination for normal comparison and control in clinical research program; I44.2 Atrioventricular block, complete; Z68.41 Body mass index [BMI] 40.0-44.9, adult; I97.190 Other postprocedural cardiac functional disturbances following cardiac surgery; E11.9 Type 2 diabetes mellitus without complications; E66.9 Obesity, unspecified; M25.511 Pain in right shoulder; Y83.8 Other surgical procedures as the cause of abnormal reaction of the patient, or of later complication, without mention of misadventure at the time of the procedure; Y92.230 Patient room in hospital as the place of occurrence of the external cause; Z60.2 Problems related to living alone; I49.9 Cardiac arrhythmia, unspecified; F41.9 Anxiety disorder, unspecified; G47.33 Obstructive sleep apnea (adult) (pediatric); I10 Essential (primary) hypertension; I77.819 Aortic ectasia, unspecified site; Z80.9 Family history of malignant neoplasm, unspecified; Z88.5 Allergy status to narcotic agent; Z88.8 Allergy status to other drugs, medicaments and biological substances; Z79.899 Other long term (current) drug therapy; Z79.82 Long term (current) use of aspirin
CPT/HCPCS: 33208; 36415; 36600; 71045; 80048; 80053; 81001; 82330; 82435; 82803; 82947; 82948; 83036; 83735; 84100; 84132; 84295; 85018; 85025; 85347; 85384; 85610; 85730; 86885; 86900; 86901; 86920; 87081; 88300; 93005; 93312; 93325; 94002; 94668; 94760; 97110; 97116; 97161; 97530; 99152; 99153; A4565; A4618; A4620; A6258; A6402; A6449; A7000; A7048; C1713; C1751; C1785; C1898; C9113; C9250; G0378; J0690; J1100; J1170; J1644; J1815; J1940; J2001; J2060; J2150; J2250; J2370; J2405; J2704; J2710; J2720; J2930; J3010; J3370; J3475; J3480; J3490; J7030; J7040; J7050; J7120; P9045; P9047; Q9967; U0003; U0005

== ENCOUNTER 2021-11-06 04:46 | Emergency (ER) | payer MEDICARE, MEDICAID ==
[~2021-11-06] VITALS: Ht 167.6 cm; Wt 113.6 kg
[~2021-11-06 04:46] MED LIST changes: -ALBU18HF2 INH; +METH-797 PO; +METO-384 PO; -METO-395 PO; +POTA10CA44 PO; -SITA1TAB2 PO; -ceFAZolin 1000mg inj ONE; -ringers solution, lacted 1,000 ML IV SCH
[2021-11-06] MEDS ORDERED: diphenhydrAMINE 50 mg/ml inj IV ONE (05:10)
[2021-11-06] MEDS ORDERED: metoclopramide 5 mg/ml inj IV ONE (05:10)
[2021-11-06] MEDS ORDERED: ketorolac trometh. 30mg/ml inj. IV ONE (05:10)
[2021-11-06] MEDS ORDERED: iohexol 300mg/ml 100ml inj. ONE (05:17)
[2021-11-06 05:43] LABS: BASOPHILS # (AUTO) 0.1 X10'3 (0-0.2); BASOPHILS % (AUTO) 1.5 % (0-1); EOSINOPHILS # (AUTO) 0.4 X10'3 (0-0.9); EOSINOPHILS % (AUTO) 5.7 % (0-6); HEMATOCRIT 38.4 % (35.0-45.0); HEMOGLOBIN 12.9 g/dl (12.0-16.0); LYMPHOCYTES # (AUTO) 2.2 X10'3 (1.1-4.8); LYMPHOCYTES % (AUTO) 30.2 % (21-51); MEAN CORPUSCULAR HEMOGLOBIN 28.4 PG (27.0-31.0); MEAN CORPUSCULAR HGB CONC 33.5 g/dL (33.0-36.5); MEAN CORPUSCULAR VOLUME 84.6 FL (78-98); MEAN PLATELET VOLUME 8.6 FL (7.4-10.4); MONOCYTES # (AUTO) 0.5 X10'3 (0-0.9); MONOCYTES % (AUTO) 6.7 % (2-12); NEUTROPHILS % (AUTO) 55.9 % (42-75); PLATELET COUNT 252 X10'3 (140-440); RED BLOOD COUNT 4.54 X10'6 (4.20-5.60); WHITE BLOOD COUNT 7.1 X10'3 (4.5-11.0)
[2021-11-06 05:47] LABS: PARTIAL THROMBOPLASTIN TIME 26 SECONDS (22-32)
[2021-11-06 05:49] LABS: ALANINE AMINOTRANSFERASE 37 U/L (12-78); ALBUMIN 3.3 G/DL (3.4-5.0); ALBUMIN/GLOBULIN RATIO 0.8 (1.1-1.5); ALKALINE PHOSPHATASE 91 IU/L (46-116); ANION GAP 10 (8-16); ASPARTATE AMINO TRANSFERASE 32 U/L (10-37); BILIRUBIN,TOTAL 0.4 MG/DL (0.1-1.0); BLOOD UREA NITROGEN 10 MG/DL (7-18); BUN/CREATININE RATIO 12.8 (6.6-38.0); CHLORIDE 105 MMOL/L (99-107); CREATININE 0.78 MG/DL (0.40-0.90); GLUCOSE 143 MG/DL (70-104); POTASSIUM 3.9 MMOL/L (3.5-5.1); SODIUM 140 MMOL/L (135-145); TOTAL CARBON DIOXIDE 24.7 MMOL/L (24-32); TOTAL PROTEIN 7.2 G/DL (6.4-8.2); eGFR 75 ML/MIN
[2021-11-06] MEDS ORDERED: MESSAGE TO NURSING PO SCH (06:00)
--- NOTE | 2021-11-06 09:45 | NUR ---
PATIENT'S SISTER CALLED IN FOR CONDITION REPORT.
[2021-11-06 11:01] VITALS: BP 139/89
--- NOTE | 2021-11-06 11:05 | NUR ---
GREY MARK, IN REGARDS TO PT GETTING DIALYSIS TREATMENT TODAY PER
[2021-11-06 11:46] LABS: CLARITY,URINE SLIGHTLY CLOUDY (Clear); COLOR,URINE YELLOW (Yellow); GLUCOSE, URINE NEGATIVE (Neg); KETONES,URINE NEGATIVE (Neg); LEUKOCYTE ESTERASE ,URINE NEGATIVE (Neg); NITRITES, URINE NEGATIVE (Neg); OCCULT BLOOD,URINE NEGATIVE (Neg); PROTEIN,URINE NEGATIVE (Neg); UROBILINOGEN,URINE 0.2 E.U/dL (0.2-1.0)
[2021-11-06 11:48] LABS: UA COLLECTION TYPE VOIDED
[2021-11-06 11:52] LABS: SQUAMOUS EPITHELIAL CELL,UR MANY /LPF (FEW)
[2021-11-06 11:53] LABS: BACTERIA,URINE FEW /HPF (Neg); RBC,URINE 0-2 /HPF (0-2); WBC,URINE 0-4 /HPF (0-4)
[2021-11-06] MEDS ORDERED: proCHLORperazine 10 MG/2 ml inj IV ONE (12:20)
== END 2021-11-06 13:30 | disposition home or self-care (01) ==
LOC: ER 04:46
DX: G43.909 Migraine, unspecified, not intractable, without status migrainosus (principal); Z20.822 Contact with and (suspected) exposure to COVID-19; R07.89 Other chest pain; R42 Dizziness and giddiness; I10 Essential (primary) hypertension; Z88.8 Allergy status to other drugs, medicaments and biological substances; Z88.6 Allergy status to analgesic agent; Z79.82 Long term (current) use of aspirin; Z79.899 Other long term (current) drug therapy
CPT/HCPCS: 36415; 70450; 71045; 74177; 80053; 81001; 82948; 83880; 84484; 85025; 85610; 85730; 87635; 93005; 96374; 96375; 99285; C9803; J0780; J1200; J1885; J2765; Q9967

== ENCOUNTER 2024-07-07 09:29 | Day surgery (SDC) | payer MEDICARE, MEDICAID ==
[2024-07-03 13:47] LABS: BASOPHILS # (AUTO) 0.1 X10'3 (0-0.2); BASOPHILS % (AUTO) 0.9 % (0-1); EOSINOPHILS # (AUTO) 0.3 X10'3 (0-0.9); EOSINOPHILS % (AUTO) 3.4 % (0-6); HEMATOCRIT 42.2 % (35.0-45.0); HEMOGLOBIN 13.8 g/dl (12.0-16.0); LYMPHOCYTES # (AUTO) 2.7 X10'3 (1.1-4.8); LYMPHOCYTES % (AUTO) 27.9 % (21-51); MEAN CORPUSCULAR HEMOGLOBIN 30.3 PG (27.0-31.0); MEAN CORPUSCULAR HGB CONC 32.8 g/dL (33.0-36.5); MEAN CORPUSCULAR VOLUME 92.3 FL (78-98); MEAN PLATELET VOLUME 8.3 FL (7.4-10.4); MONOCYTES # (AUTO) 0.7 X10'3 (0-0.9); MONOCYTES % (AUTO) 6.8 % (2-12); NEUTROPHILS # (AUTO) 5.8 X10'3 (1.8-7.7); PLATELET COUNT 281 X10'3 (140-440); RED BLOOD COUNT 4.57 X10'6 (4.20-5.60); WHITE BLOOD COUNT 9.6 X10'3 (4.5-11.0)
[2024-07-03 14:00] LABS: APTT 25 SECONDS (22-32); PROTHROMBIN TIME 10.9 SECONDS (9.0-12.0)
[2024-07-03 14:01] LABS: ALBUMIN 3.8 G/DL (3.4-5.0); ANION GAP 7 (8-16); BLOOD UREA NITROGEN 16 MG/DL (7-18); CALCIUM 9.6 MG/DL (8.5-10.1); CHLORIDE 104 MMOL/L (99-107); CHOL/HDL RATIO 4.1 (0.00-4.99); CHOLESTEROL 200 MG/DL (0-200); GLUCOSE 156 MG/DL (70-104); HDL CHOLESTEROL 49 MG/DL (35-60); LDL CHOLESTEROL 111 MG/DL (50-100); POTASSIUM 3.8 MMOL/L (3.5-5.1); SODIUM 140 MMOL/L (135-145); TOTAL CARBON DIOXIDE 29.5 MMOL/L (24-32); TRIGLYCERIDES 175 MG/DL (20-135); eGFR 72 ML/MIN
[~2024-07-07] VITALS: Ht 165.1 cm; Wt 111.9 kg
[2024-07-07] VITALS (8 sets, daily range): BP systolic 127–167; BP diastolic 81–103; PULSE 62–69; RESP 16; TEMP 98.2; O2SAT 94–96
[~2024-07-07 09:29] MED LIST changes: -POTA10CA44 PO; +POTA10CA95 PO
[2024-07-07] MEDS ORDERED: diphenhydrAMINE 25mg capsule PO PRN (09:45)
[2024-07-07] MEDS: LORazepam 0.5 MG tablet PO PRN (11:15)
[2024-07-07] MEDS: normal saline 1,000 ML IV SCH (11:16)
[2024-07-07] MEDS ORDERED: fentaNYL/PF 50MCG/1 ML 2ML syringe ONE (12:01)
[2024-07-07] MEDS ORDERED: heparin 1,000unit/ml 10ml vial 10 ML ONE (12:01)
[2024-07-07] MEDS ORDERED: LIDOcaine 1% (10mg/ml) 2ml vial ONE (12:01)
[2024-07-07] MEDS ORDERED: verapamil 2.5 mg/ml inj IV ONE (12:01)
[2024-07-07] MEDS ORDERED: midazolam 1 mg/ML 2ml injection ONE ×2 (12:01→12:43)
[2024-07-07] MEDS ORDERED: iohexol 350MG/ML 100ml bottle IV ONE (12:02)
[2024-07-07] MEDS ORDERED: nitroGLYCERIN 500mcg/5mL D5W 5 ML IV ONE (12:02)
== END 2024-07-07 15:05 | disposition home or self-care (01) ==
LOC: SSTAY O 09:29
PROVIDERS: ATTEND Student in an Organized Health Care Education/Training Program
DX: R07.9 Chest pain, unspecified (principal); I25.10 Atherosclerotic heart disease of native coronary artery without angina pectoris; I49.3 Ventricular premature depolarization; I10 Essential (primary) hypertension; E78.00 Pure hypercholesterolemia, unspecified; I35.0 Nonrheumatic aortic (valve) stenosis; G47.33 Obstructive sleep apnea (adult) (pediatric); Z88.5 Allergy status to narcotic agent; Z88.8 Allergy status to other drugs, medicaments and biological substances
CPT/HCPCS: 36415; 80048; 80061; 82948; 85025; 85610; 85730; 93005; 93454; 99152; A6258; A6402; C1894; J1644; J2001; J2250; J3010; J3490; J7030; Q9967; Z7610

== ENCOUNTER 2024-11-23 09:17 | Emergency (ER) | payer MEDICARE, MEDICAID ==
[~2024-11-23] VITALS: Ht 165.1 cm; Wt 115.5 kg
[~2024-11-23 09:17] MED LIST changes: -FURO-150 PO; -POTA10CA95 PO
[2024-11-23 09:51] LABS: BASOPHILS # (AUTO) 0.1 X10'3 (0-0.2); BASOPHILS % (AUTO) 0.8 % (0-1); EOSINOPHILS # (AUTO) 0.8 X10'3 (0-0.9); EOSINOPHILS % (AUTO) 8.4 % (0-6); HEMATOCRIT 41.5 % (35.0-45.0); HEMOGLOBIN 14.1 g/dl (12.0-16.0); LYMPHOCYTES % (AUTO) 21.1 % (21-51); MEAN CORPUSCULAR HEMOGLOBIN 31.4 PG (27.0-31.0); MEAN CORPUSCULAR HGB CONC 34.1 g/dL (33.0-36.5); MEAN CORPUSCULAR VOLUME 92.1 FL (78-98); MEAN PLATELET VOLUME 8.4 FL (7.4-10.4); MONOCYTES # (AUTO) 0.6 X10'3 (0-0.9); NEUTROPHILS # (AUTO) 6.2 X10'3 (1.8-7.7); NEUTROPHILS % (AUTO) 63.7 % (42-75); PLATELET COUNT 291 X10'3 (140-440); RED CELL DISTRIBUTION WIDTH 12.9 % (11.5-14.5); WHITE BLOOD COUNT 9.7 X10'3 (4.5-11.0)
[2024-11-23 10:19] LABS: ALANINE AMINOTRANSFERASE 31 U/L (12-78); ALBUMIN 3.6 G/DL (3.4-5.0); ALBUMIN/GLOBULIN RATIO 0.8 (1.1-1.5); ALKALINE PHOSPHATASE 118 IU/L (46-116); ANION GAP 7 (8-16); ASPARTATE AMINO TRANSFERASE 26 U/L (10-37); BILIRUBIN,TOTAL 0.5 MG/DL (0.1-1.0); BLOOD UREA NITROGEN 15 MG/DL (7-18); BUN/CREATININE RATIO 16.7 (10.0-20.0); CALCIUM 9.2 MG/DL (8.5-10.1); CHLORIDE 104 MMOL/L (99-107); POTASSIUM 4.1 MMOL/L (3.5-5.1); SODIUM 139 MMOL/L (135-145); TOTAL CARBON DIOXIDE 27.6 MMOL/L (24-32); TOTAL PROTEIN 7.9 G/DL (6.4-8.2); eCRCL 55 ML/MIN; eGFR 63 ML/MIN
[2024-11-23 10:28] LABS: MAGNESIUM 2.2 MG/DL (1.5-2.4); PRO BRAIN NATRIURETIC PEPTIDE 258 PG/ML (0-125)
[2024-11-23 10:34] LABS: GLUCOSE 169 MG/DL (70-104)
[2024-11-23 15:19] VITALS: BP 112/70; PULSE 75; RESP 16; O2SAT 95
== END 2024-11-23 15:26 | disposition home or self-care (01) ==
LOC: ER 09:17
DX: R07.89 Other chest pain (principal); I25.10 Atherosclerotic heart disease of native coronary artery without angina pectoris; Z88.5 Allergy status to narcotic agent; Z88.8 Allergy status to other drugs, medicaments and biological substances; Z79.82 Long term (current) use of aspirin; Z79.899 Other long term (current) drug therapy
CPT/HCPCS: 36415; 71045; 80053; 83735; 83880; 84484; 85025; 93005; 99285